=== PATIENT | male | born 1970 | race Caucasian/White ===

== ENCOUNTER 2016-08-18 15:13 | Emergency (ER) | payer OTHER ==
[~2016-08-18] VITALS: Ht 165.1 cm; Wt 92.7 kg
[2016-08-18] MEDS ORDERED: VENLAFAXINE HC100 MG PO (15:22)
[2016-08-18] MEDS ORDERED: AUGMENTIN 875-1 EAC1 PO (18:14)
[2016-08-18 19:18] VITALS: BP 139/87
== END 2016-08-18 18:55 | disposition home or self-care (01) ==
LOC: ED 15:13
DX: S60.471A Other superficial bite of left index finger, initial encounter (principal); W54.0XXA Bitten by dog, initial encounter; Z20.3 Contact with and (suspected) exposure to rabies; Y93.89 Activity, other specified; Y92.007 Garden or yard of unspecified non-institutional (private) residence as the place of occurrence of the external cause

== ENCOUNTER 2016-08-21 12:37 | Outpatient (RCR) | payer OTHER ==
[~2016-08-21] VITALS: Ht 165.1 cm; Wt 92.7 kg
[~2016-08-21 12:37] MED LIST: AUGMENTIN 875-1 EAC1 PO; VENLAFAXINE HC100 MG PO
[2016-08-21 12:43] VITALS: BP 116/76
[2016-08-21] MEDS ORDERED: VITAMIN D 90 MG1 TAB PO (12:46)
[2016-08-25 13:27] VITALS: BP 115/75
[2016-09-01 14:20] VITALS: BP 125/81
== END 2016-11-19 | disposition home or self-care (01) ==
LOC: AMSURD
DX: Z20.3 Contact with and (suspected) exposure to rabies (principal)

== ENCOUNTER 2017-02-01 11:18 | Emergency (ER) | payer OTHER ==
[~2017-02-01] VITALS: Ht 165.1 cm; Wt 94.5 kg
[~2017-02-01 11:18] MED LIST changes: +VITAMIN D 90 MG1 TAB PO
[2017-02-01] MEDS ORDERED: VENLAFAXINE37.5 MG PO (11:51)
[2017-02-01] MEDS ORDERED: SERTRALINE HYD100 MG PO (11:51)
[2017-02-01] MEDS ORDERED: D-1000 185 MG-11 TAB PO (11:52)
[2017-02-01] MEDS ORDERED: PRILOSEC 20MG20 MG PO (16:48)
[2017-02-01 17:05] VITALS: BP 130/75
== END 2017-02-01 17:05 | disposition home or self-care (01) ==
LOC: ED 11:18
DX: R07.89 Other chest pain (principal); K21.9 Gastro-esophageal reflux disease without esophagitis; I25.10 Atherosclerotic heart disease of native coronary artery without angina pectoris; I10 Essential (primary) hypertension; E78.5 Hyperlipidemia, unspecified; Z87.891 Personal history of nicotine dependence; Z82.49 Family history of ischemic heart disease and other diseases of the circulatory system